=== PATIENT | male | born 2000 | race Caucasian/White ===

== ENCOUNTER 2022-05-21 13:35 | Emergency (ER) | payer OTHER ==
[~2022-05-21] VITALS: Ht 167.6 cm; Wt 58.0 kg
[2022-05-21 13:42] VITALS: TEMP 97.8
[2022-05-21 15:32] VITALS: BP 108/61; PULSE 74
== END 2022-05-21 15:41 | disposition home or self-care (01) ==
LOC: COL.ER 13:35
DX: R45.851 Suicidal ideations (principal)